=== PATIENT | male | born 1950 | race Caucasian/White ===

== ENCOUNTER 2016-12-26 18:24 | Emergency (ER) | payer MEDICARE, OTHER ==
[2016-12-26 18:53] LABS: BASOPHIL 0.4 % (0-2); HCT 44.8 % (42.0-52.0); LYMPHOCYTE 28.8 % (15-48); MCH 28.5 pg (25.0-31.0); MCHC 35.7 g/dL (32.0-36.0); MCV 79.7 fL (78.0-100.0); MONOCYTE 10.2 % (0-12); MPV 10.5 fL (6.0-9.5); NEUTROPHIL 57.6 % (41-80); PLT 215 K/uL (150-400); RBC 5.62 M/uL (4.70-6.00); RDW 13.5 % (11.5-14.0); WBC 7.7 K/uL (4.0-10.5)
[2016-12-26 19:06] LABS: INR 1.01 (0.9-1.2); PROTHROMBIN TIME 12.9 SECONDS (11.7-14.0)
[2016-12-26 19:15] LABS: ALBUMIN 4.2 g/dL (3.4-4.8); BILIRUBIN - TOTAL 0.2 mg/dL (0.1-1.0); CREATININE 1.1 mg/dL (0.7-1.2); GLOBULIN (CALCULATION) 2.9 g/dL (2.2-4.2); POTASSIUM 3.9 mmol/L (3.5-5.1); TOTAL PROTEIN 7.1 g/dL (6.4-8.3)
[2016-12-26 19:17] LABS: MYOGLOBIN 133 ng/mL (26-65); TROPONIN T < 0.010 ng/mL
== END 2016-12-26 20:15 | disposition other institution (70) ==
LOC: FER 18:24
PROVIDERS: Internal Medicine
DX: I62.9 Nontraumatic intracranial hemorrhage, unspecified (principal); G81.94 Hemiplegia, unspecified affecting left nondominant side; R20.2 Paresthesia of skin; R29.704 NIHSS score 4
CPT/HCPCS: 36415; 70450; 71010; 80053; 80061; 82550; 82553; 83874; 84484; 85025; 85610; 85730; 93005

== ENCOUNTER → 2021-11-29 | Day surgery (SDC) | payer MEDICARE, OTHER ==
[~2021-11-29] VITALS: Ht 182.9 cm; Wt 104.3 kg
[~2021-11-29] MED LIST: ACETAMINOPHEN500 M1 PO; COZAAR 100MG T100 MG PO; CRESTOR10 M1 PO; GLUCOTROL5 MG PO; HYDROCHLOROTHIA25 MG PO; KEFLEX500 MG PO; MOTRIN600 MG PO; NIACIN500 M1 PO; PLAVIX75 MG PO; PROTONIX 40MG T40 MG PO
[2021-11-29 07:48] LABS: HCT 50.8 % (42.0-52.0); HGB 17.3 g/dl (13.2-18.0); MCH 28.9 pg (25.0-31.0); MCHC 34.1 g/dL (32.0-36.0); MCV 84.8 fL (78.0-100.0); MPV 10.7 fL (6.0-9.5); RBC 5.99 M/uL (4.70-6.00); RDW 13.3 % (11.5-14.0); WBC 7.6 K/uL (4.0-10.5)
[2021-11-29 08:17] LABS: ALBUMIN 4.1 g/dL (3.4-5.0); BILIRUBIN - TOTAL 0.7 mg/dL (0.2-1.0); BUN/CREAT RATIO (CALC) 16.5 RATIO; CREATININE 0.91 mg/dL (0.67-1.17); GLOBULIN (CALCULATION) 3.5 g/dL; POTASSIUM 4.7 mmol/L (3.5-5.1); TOTAL PROTEIN 7.6 g/dL (6.4-8.2)
== END | disposition home or self-care (01) ==
LOC: FAS 07:08
PROVIDERS: Surgery
DX: Z12.11 Encounter for screening for malignant neoplasm of colon (principal); I10 Essential (primary) hypertension; E78.00 Pure hypercholesterolemia, unspecified; E11.9 Type 2 diabetes mellitus without complications; Z87.891 Personal history of nicotine dependence; Z79.02 Long term (current) use of antithrombotics/antiplatelets; Z79.84 Long term (current) use of oral hypoglycemic drugs; Z79.899 Other long term (current) drug therapy
CPT/HCPCS: 36415; 80053; J2704; J7120